=== PATIENT | male | born 2005 | race Two or more races ===

== ENCOUNTER 2023-04-10 09:50 | Emergency (ER) | payer MEDICAID ==
[~2023-04-10] VITALS: Ht 182.9 cm; Wt 52.7 kg
[2023-04-10 09:51] VITALS: TEMP 98.3
[2023-04-10 12:17] VITALS: BP 135/81; PULSE 66; RESP 20; O2SAT 99
== END 2023-04-10 15:38 | disposition home or self-care (01) ==
LOC: ER 09:51
DX: M54.41 Lumbago with sciatica, right side (principal); M79.604 Pain in right leg
CPT/HCPCS: 72100; 99284